=== PATIENT | male | born 1960 | race Caucasian/White ===

== ENCOUNTER → 2016-07-21 | Outpatient (CLI) | payer BC ==
[~2016-07-21] MED LIST: CALMOSEPTINE OINTMENT 3.5 G PACKET TOP ONE; MULT-1198
== END ==
LOC: NWCC 14:09
PROVIDERS: ATTEND Internal Medicine
DX: S21.201A Unspecified open wound of right back wall of thorax without penetration into thoracic cavity, initial encounter (principal); L02.212 Cutaneous abscess of back [any part, except buttock and flank]; L72.3 Sebaceous cyst
CPT/HCPCS: 11042; A6209

== ENCOUNTER → 2016-07-31 | Outpatient (CLI) | payer BC ==
[~2016-07-31] MED LIST changes: -CALMOSEPTINE OINTMENT 3.5 G PACKET TOP ONE
== END ==
LOC: NWCC 09:18
PROVIDERS: ATTEND Internal Medicine
DX: L02.212 Cutaneous abscess of back [any part, except buttock and flank] (principal); S21.201A Unspecified open wound of right back wall of thorax without penetration into thoracic cavity, initial encounter; L72.3 Sebaceous cyst

== ENCOUNTER → 2016-08-01 | Outpatient (CLI) | payer BC ==
[~2016-08-01] MED LIST changes: +CALMOSEPTINE OINTMENT 3.5 G PACKET TOP ONE; +SALINE FLUSH 10ml SYRINGE IVF ONE
== END ==
LOC: NWCC 09:51
PROVIDERS: ATTEND Internal Medicine
DX: S21.201A Unspecified open wound of right back wall of thorax without penetration into thoracic cavity, initial encounter (principal); L02.212 Cutaneous abscess of back [any part, except buttock and flank]; L72.3 Sebaceous cyst
CPT/HCPCS: 99212; A6209; A6210

== ENCOUNTER → 2016-08-04 | Outpatient (CLI) | payer BC ==
[~2016-08-04] MED LIST changes: -CALMOSEPTINE OINTMENT 3.5 G PACKET TOP ONE; -SALINE FLUSH 10ml SYRINGE IVF ONE
== END ==
LOC: NWCC 08:35
PROVIDERS: ATTEND Internal Medicine
DX: S21.201A Unspecified open wound of right back wall of thorax without penetration into thoracic cavity, initial encounter (principal); L02.212 Cutaneous abscess of back [any part, except buttock and flank]; L72.3 Sebaceous cyst
CPT/HCPCS: 11042; A6209

== ENCOUNTER → 2016-08-07 | Outpatient (CLI) | payer BC ==
[~2016-08-07] MED LIST changes: +SALINE FLUSH 10ml SYRINGE IVF ONE
== END ==
LOC: NWCC 08:04
PROVIDERS: ATTEND Internal Medicine
DX: L02.212 Cutaneous abscess of back [any part, except buttock and flank] (principal); S21.201A Unspecified open wound of right back wall of thorax without penetration into thoracic cavity, initial encounter; L72.3 Sebaceous cyst
CPT/HCPCS: 99212; A6021; A6209; A6210

== ENCOUNTER → 2016-08-11 | Outpatient (CLI) | payer BC ==
[~2016-08-11] MED LIST changes: -SALINE FLUSH 10ml SYRINGE IVF ONE
== END ==
LOC: NWCC 08:37
PROVIDERS: ATTEND Internal Medicine
DX: L02.212 Cutaneous abscess of back [any part, except buttock and flank] (principal); S21.201A Unspecified open wound of right back wall of thorax without penetration into thoracic cavity, initial encounter; L72.3 Sebaceous cyst
CPT/HCPCS: 99212; A6021; A6209

== ENCOUNTER → 2016-08-14 | Outpatient (CLI) | payer BC | LOC: NWCC 09:04 | PROVIDERS: ATTEND Internal Medicine | DX: L02.212 Cutaneous abscess of back [any part, except buttock and flank] (principal); S21.201A Unspecified open wound of right back wall of thorax without penetration into thoracic cavity, initial encounter | CPT/HCPCS: 99212; A6209 ==

== ENCOUNTER → 2016-08-18 | Outpatient (CLI) | payer BC | LOC: NWCC 08:30 | PROVIDERS: ATTEND Internal Medicine | DX: L02.212 Cutaneous abscess of back [any part, except buttock and flank] (principal); S21.201A Unspecified open wound of right back wall of thorax without penetration into thoracic cavity, initial encounter; L72.3 Sebaceous cyst ==

== ENCOUNTER → 2016-08-22 | Outpatient (CLI) | payer BC | LOC: NWCC 10:52 | PROVIDERS: ATTEND Internal Medicine | DX: L02.212 Cutaneous abscess of back [any part, except buttock and flank] (principal); S21.201A Unspecified open wound of right back wall of thorax without penetration into thoracic cavity, initial encounter ==

== ENCOUNTER → 2016-08-25 | Outpatient (CLI) | payer BC | LOC: NWCC 09:35 | PROVIDERS: ATTEND Internal Medicine | DX: S21.201A Unspecified open wound of right back wall of thorax without penetration into thoracic cavity, initial encounter (principal); L02.212 Cutaneous abscess of back [any part, except buttock and flank] | CPT/HCPCS: 11042; A6021 ==

== ENCOUNTER → 2016-09-01 | Outpatient (CLI) | payer BC | LOC: NWCC 08:06 | PROVIDERS: ATTEND Internal Medicine | DX: S21.201A Unspecified open wound of right back wall of thorax without penetration into thoracic cavity, initial encounter (principal); L02.212 Cutaneous abscess of back [any part, except buttock and flank] ==

== ENCOUNTER → 2016-09-04 | Outpatient (CLI) | payer BC | LOC: NWCC 08:31 | PROVIDERS: ATTEND Internal Medicine | DX: L02.212 Cutaneous abscess of back [any part, except buttock and flank] (principal); S21.201A Unspecified open wound of right back wall of thorax without penetration into thoracic cavity, initial encounter | CPT/HCPCS: 11042 ==

== ENCOUNTER → 2016-09-15 | Outpatient (CLI) | payer BC ==
[~2016-09-15] MED LIST changes: +SALINE FLUSH 10ml SYRINGE IVF ONE
== END ==
LOC: NWCC 08:16
PROVIDERS: ATTEND Internal Medicine
DX: S21.201A Unspecified open wound of right back wall of thorax without penetration into thoracic cavity, initial encounter (principal); L02.212 Cutaneous abscess of back [any part, except buttock and flank]
CPT/HCPCS: 99213; A6021; A6212